=== PATIENT | male | born 1950 | race Two or more races ===

== ENCOUNTER 2017-04-19 14:21 | Inpatient (IN) | payer MEDICAID, OTHER ==
[~2017-04-19] VITALS: Ht 170.2 cm; Wt 72.6 kg
[~2017-04-19 14:21] MED LIST: DEXA0.75 OR; NAPR220T56 OR
[2017-04-19 15:07] LABS: Basophils # (auto) 0 uL; Basophils % (auto) 0.5 % (0.0-2.0); CONDITION Y; Eosinophils # (auto) 0.1 uL; Eosinophils % (auto) 2.8 % (0.0-7.0); Hematocrit 50.7 % (41.0-53.0); Hemoglobin 17.3 g/dL (13.5-17.5); Lymphocytes # (auto) 2.1 uL; Lymphocytes % (auto) 46.9 % (10.0-50.0); Mean Corpuscular Hemoglobin 32.3 pg (28.0-32.0); Mean Corpuscular Hgb Conc. 34.2 g/dL (32.0-36.0); Mean Corpuscular Volume 94.4 fL (80.0-100.0); Mean Platelet Volume 9.9 fL (7.4-10.4); Monocytes # (auto) 0.3 uL; Monocytes % (auto) 7.3 % (0.0-12.0); Neutrophils # (auto) 1.9 uL; Neutrophils % (auto) 42.5 % (37.0-80.0); Platelet Count (auto) 135 10^3/uL (140-450); White Blood Cell 4.6 10^3/uL (4.4-10.8)
[2017-04-19 15:21] LABS: Albumin 3.4 g/dL (3.4-5.0); Anion Gap 8 (5-15); Aspartate Aminotransferase 21 U/L (15-37); BUN/Creatinine Ratio 15.7; Blood Urea Nitrogen 26 mg/dL (7-18); Calcium 8.2 mg/dL (8.5-10.1); Carbon Dioxide 23 mmol/L (21-32); Chloride 109 mmol/L (98-107); GFR African American 54 mL/min; GFR Non-African American 45 mL/min; Glucose 77 mg/dL (74-106); Magnesium 2.3 mg/dL (1.6-2.6); Potassium 4.6 mmol/L (3.5-5.1); Sodium 140 mmol/L (136-145)
[2017-04-19 15:26] LABS: Alkaline Phosphatase 71 U/L (45-117); Bilirubin, Total 0.6 mg/dL (0.2-1.0); Total Protein 7.3 g/dL (6.4-8.2)
[2017-04-20] MEDS ORDERED: FAMOTIDINE (10MG/ML) 2ML VL IV ONE (01:15)
[2017-04-20] MEDS ORDERED: MORPHINE SULF INJ 2 MG/ML SYRINGE 1ML IV ONE (01:15)
[2017-04-20] MEDS ORDERED: ONDANSETRON HCL 4 MG/2 ML VIAL IV ONE (01:15)
[2017-04-20 02:58] LABS: Urine Bilirubin Negative (Negative); Urine Blood Negative /uL (Negative); Urine Color Yellow (Yellow); Urine Glucose Normal (Normal); Urine Granular Cast FEW /lpf (0); Urine Hyaline Cast FEW /lpf (0 - 2); Urine Ketone Negative (Negative); Urine Mucus FEW (None Seen); Urine Nitrite Negative (Negative); Urine RBC 1 /hpf (0 - 3); Urine Urobilinogen Normal (Negative); Urine pH 5.5 (5.0-8.0)
[2017-04-20] MEDS ORDERED: ACETAMINOPHEN 325 MG TAB PO PRN (04:45)
[2017-04-20] MEDS ORDERED: DEXTROSE (50%) 50ML SYRG IV PRN (04:45)
[2017-04-20] MEDS ORDERED: HYDROcodone-ACET 5/325MG TAB PO PRN (04:45)
[2017-04-20] MEDS ORDERED: ONDANSETRON HCL 4 MG/2 ML VIAL IV PRN (04:45)
[2017-04-20] MEDS ORDERED: TEMAZEPAM 15 MG CAP PO PRN (04:45)
[2017-04-20] MEDS ORDERED: MORPHINE SULF INJ 2 MG/ML SYRINGE 1ML IV PRN (04:45)
[2017-04-20] MEDS: SODIUM CHLORIDE 0.9% 1,000 ML IV SCH ×2 (05:03→13:39)
[2017-04-20] MEDS: InsuLIN REG 1unit/0.01ml Soln (100units/ml) SC SCH ×3 (05:56→17:58)
[2017-04-20] MEDS: ACCU-CHEK COMFORT CURVE STRIP VI SCH ×3 (05:56→17:58)
[2017-04-20] MEDS: LEVOTHYROXINE SODIUM 100 MCG TAB PO SCH (07:27)
[2017-04-20] MEDS: LISINOPRIL 10 MG TAB PO SCH (10:00)
[2017-04-20] MEDS: ENOXAPARIN SOD 40 MG/0.4 ML SYRINGE SC SCH (10:00)
[2017-04-20] MEDS ORDERED: VOTRIENT PO SCH (10:00)
[2017-04-20] MEDS ORDERED: PANTOPRAZOLE 40 MG/10 ML VIAL IV SCH (10:00)
[2017-04-20 10:09] VITALS: BP 152/98
[2017-04-20 13:58] VITALS: BP 152/98
[2017-04-20 17:00] VITALS: BP 123/67
[2017-04-20] MEDS: TAMSULOSIN HYDROCHLORIDE 0.4 MG CAP PO SCH (18:23)
[2017-04-20 20:00] VITALS: BP 118/74
[2017-04-20 22:00] VITALS: BP 118/74
[2017-04-21 05:30] VITALS: BP 96/62
[2017-04-21 05:36] LABS: CONDITION Y; DEFINITIVE SEE PRINTOUT; Hematocrit 43.9 % (41.0-53.0); Hemoglobin 15.2 g/dL (13.5-17.5); Mean Corpuscular Hemoglobin 32.6 pg (28.0-32.0); Mean Corpuscular Hgb Conc. 34.5 g/dL (32.0-36.0); Mean Corpuscular Volume 94.3 fL (80.0-100.0); Mean Platelet Volume 9.6 fL (7.4-10.4); Platelet Count (auto) 121 10^3/uL (140-450); Red Cell Distribution Width 15.1 % (11.6-16.0); White Blood Cell 3.1 10^3/uL (4.4-10.8)
[2017-04-21] MEDS: SODIUM CHLORIDE 0.9% 1,000 ML IV SCH ×2 (05:36→18:06)
[2017-04-21 05:56] LABS: Albumin 2.6 g/dL (3.4-5.0); BUN/Creatinine Ratio 13.1; Calcium 7.8 mg/dL (8.5-10.1)
[2017-04-21 05:59] LABS: Bilirubin, Total 0.5 mg/dL (0.2-1.0); Total Protein 5.6 g/dL (6.4-8.2)
[2017-04-21] MEDS: InsuLIN REG 1unit/0.01ml Soln (100units/ml) SC SCH ×4 (06:00→18:00)
[2017-04-21 06:18] LABS: Metamyelocytes % 0; Myelocytes % 0; Promyelocytes % 0; Reactive Lymphocytes 0
[2017-04-21] MEDS: ACCU-CHEK COMFORT CURVE STRIP VI SCH ×4 (06:49→18:00)
[2017-04-21] MEDS: LEVOTHYROXINE SODIUM 100 MCG TAB PO SCH (06:49)
[2017-04-21 07:38] LABS: Platelet Estimate Decreased
[2017-04-21 07:51] LABS: INR 1.04 (0.9-1.15); Partial Thromboplastin Time 29.1 sec (22.64-33.71); Prothrombin Time 11.3 sec (9.37-12.3)
[2017-04-21 08:00] VITALS: BP 118/74
[2017-04-21] MEDS ORDERED: NALOXONE HCL 0.4 MG/ML VIAL ONE (08:23)
[2017-04-21] MEDS ORDERED: FLUMAZENIL 0.1 MG/ML INJ 10ML MDV IV ONE (08:23)
[2017-04-21] MEDS ORDERED: MIDAZOLAM HCL 5 MG/ML-1ML VIAL ONE (08:24)
[2017-04-21] MEDS ORDERED: LIDOCAINE VISCOUS 2% 15ML UD ONE (08:24)
[2017-04-21] MEDS ORDERED: SODIUM CHLORIDE LOCK 10 ML ONE (08:24)
[2017-04-21] MEDS ORDERED: fentaNYL CITRATE 100 MCG/2 ML VL ONE (08:25)
[2017-04-21] MEDS ORDERED: diphenhdrAMINE HCL 50 MG/1 ML VL ONE (08:25)
[2017-04-21] MEDS: PANTOPRAZOLE 40 MG TAB PO SCH ×2 (10:22→22:32)
[2017-04-21] MEDS: ENOXAPARIN SOD 40 MG/0.4 ML SYRINGE SC SCH (10:23)
[2017-04-21] MEDS: LISINOPRIL 10 MG TAB PO SCH (10:23)
[2017-04-21 13:00] VITALS: BP 139/93
[2017-04-21 17:00] VITALS: BP 148/97
[2017-04-21] MEDS: TAMSULOSIN HYDROCHLORIDE 0.4 MG CAP PO SCH (17:57)
[2017-04-21 21:52] VITALS: BP 134/87
[2017-04-22 05:23] VITALS: BP 102/83
[2017-04-22] MEDS: ACCU-CHEK COMFORT CURVE STRIP VI SCH ×2 (06:00)
[2017-04-22] MEDS: InsuLIN REG 1unit/0.01ml Soln (100units/ml) SC SCH ×2 (06:00)
[2017-04-22] MEDS: SODIUM CHLORIDE 0.9% 1,000 ML IV SCH (06:36)
[2017-04-22] MEDS: LEVOTHYROXINE SODIUM 100 MCG TAB PO SCH (07:00)
[2017-04-22 08:00] VITALS: BP 132/76
[2017-04-22 08:19] VITALS: BP 132/76
[2017-04-22 10:21] VITALS: BP 132/76
[2017-04-22] MEDS: LISINOPRIL 10 MG TAB PO SCH (10:34)
[2017-04-22] MEDS: ENOXAPARIN SOD 40 MG/0.4 ML SYRINGE SC SCH (10:34)
[2017-04-22] MEDS: PANTOPRAZOLE 40 MG TAB PO SCH (10:35)
[2017-04-22 12:30] VITALS: BP 128/74
== END 2017-04-22 18:53 | disposition home or self-care (01) | DRG 241 ==
LOC: ER 14:21 → OVERFLOW 14:22 → EAST 04-20 08:42 → WEST WING 04-20 17:17
PROVIDERS: ADMIT Nurse Practitioner; ATTEND Internal Medicine
PROC: 0DB68ZX Excision of Stomach, Via Natural or Artificial Opening Endoscopic, Diagnostic (ICD-10-PCS; principal; 2017-04-21 08:56)
DX: K29.70 Gastritis, unspecified, without bleeding (principal); C79.00 Secondary malignant neoplasm of unspecified kidney and renal pelvis; E11.22 Type 2 diabetes mellitus with diabetic chronic kidney disease; K86.3 Pseudocyst of pancreas; K85.90 Acute pancreatitis without necrosis or infection, unspecified; I13.10 Hypertensive heart and chronic kidney disease without heart failure, with stage 1 through stage 4 chronic kidney disease, or unspecified chronic kidney disease; N18.3 Chronic kidney disease, stage 3 (moderate); K29.80 Duodenitis without bleeding; E03.9 Hypothyroidism, unspecified; Z85.528 Personal history of other malignant neoplasm of kidney; Z90.5 Acquired absence of kidney; Z92.21 Personal history of antineoplastic chemotherapy
CPT/HCPCS: 36415; 43239; 71020; 74176; 80053; 81001; 82962; 83690; 83735; 84484; 85007; 85025; 85027; 85610; 85730; 93005; 96374; 96375; J2250; J2405; J3490

== ENCOUNTER 2018-06-02 11:35 | Emergency (ER) | payer MEDICAID ==
[~2018-06-02] VITALS: Ht 162.6 cm; Wt 70.3 kg
[2018-06-02 13:29] LABS: Basophils # (auto) 0.1 uL; Basophils % (auto) 1.3 % (0.0-2.0); Eosinophils # (auto) 0 uL; Eosinophils % (auto) 0.3 % (0.0-7.0); Hematocrit 36.1 % (41.0-53.0); Hemoglobin 12.2 g/dL (13.5-17.5); Lymphocytes # (auto) 1.1 uL; Lymphocytes % (auto) 24.1 % (10.0-50.0); Mean Corpuscular Hgb Conc. 33.8 g/dL (32.0-36.0); Mean Corpuscular Volume 88.9 fL (80.0-100.0); Monocytes # (auto) 0.6 uL; Monocytes % (auto) 13.2 % (0.0-12.0); Neutrophils # (auto) 2.9 uL; Neutrophils % (auto) 61.1 % (37.0-80.0); Nucleated Red Blood Cells % 0.4 %; Platelet Count (auto) 284 10^3/uL (140-450); Red Blood Cells 4.06 10^6/uL (4.5-5.90); Red Cell Distribution Width 17.5 % (11.8-14.3); White Blood Cell 4.7 10^3/uL (4.4-10.8)
[2018-06-02 13:50] LABS: Alanine Aminotransferase 31 U/L (16-61); Albumin 2.3 g/dL (3.4-5.0); Anion Gap 5 (5-15); Aspartate Aminotransferase 14 U/L (15-37); Blood Urea Nitrogen 14 mg/dL (7-18); Calcium 7.5 mg/dL (8.5-10.1); Carbon Dioxide 29 mmol/L (21-32); Chloride 105 mmol/L (98-107); GFR African American 88 mL/min; GFR Non-African American 73 mL/min; Glucose 127 mg/dL (74-106); Potassium 4.4 mmol/L (3.5-5.1); Sodium 139 mmol/L (136-145)
[2018-06-02 13:54] LABS: Alkaline Phosphatase 112 U/L (45-117); Bilirubin, Total 0.3 mg/dL (0.2-1.0); Total Protein 5.7 g/dL (6.4-8.2)
[2018-06-02 18:00] VITALS: BP 102/67
== END 2018-06-02 18:18 | disposition home or self-care (01) ==
LOC: ER 11:35
DX: M79.89 Other specified soft tissue disorders (principal); E11.65 Type 2 diabetes mellitus with hyperglycemia; E83.51 Hypocalcemia; K21.9 Gastro-esophageal reflux disease without esophagitis; I10 Essential (primary) hypertension; Z79.899 Other long term (current) drug therapy
CPT/HCPCS: 36415; 71045; 80053; 83880; 84484; 85025; 85379; 93005; 93971